=== PATIENT | female | born 1960 | race Caucasian/White ===

== ENCOUNTER 2024-04-14 14:36 | Emergency (ER) | payer OTHER, SELFPAY ==
[2024-04-14 14:37] VITALS: BP 180/83; PULSE 86; RESP 16; TEMP 36.8; O2SAT 100; BMI 34.1
--- NOTE | 2024-04-14 14:55 | RAD_ITS ---
PROCEDURE: HUMERUS 4 VIEWS REASON FOR EXAM: 63-year-old female, fell yesterday, left upper arm and shoulder pain. TECHNIQUE: 4 view(s) of the left humerus COMPARISON: None. FINDINGS: Acute, mildly comminuted and displaced left humeral surgical neck and greater tuberosity fractures. The bone fragments are displaced less than 1 cm. No intra-articular fracture extension. No suspicious bone lesion. Normal alignment at the shoulder and elbow. Soft tissues are unremarkable. The visualized left lung is unremarkable. RAD/Humerus min 2 Views IMPRESSION: Acute fracture of the left surgical neck and greater tuberosity. Reading Location: [id number]
--- NOTE | 2024-04-14 15:16 | EX.ED.UPPERE ---
HPI History of Present Illness Chief Complaint: Upper Extremity Injury Informant: patient and spouse/S.O. Narrative Narrative: Very pleasant 63-year-old female presenting to the emergency room with left shoulder and arm pain. Patient states she fell yesterday tripping on some concrete. She notes bruising along the anterior mid humerus on the left. She is left-hand dominant. She denies any other injuries. She notes pain along the bruising as well as over the anterior left shoulder. She notes limited range of motion. She denies any symptomology at the elbow hand or wrist. She has not seen a local orthopedist [facility] Home Medications ?Medication ?Instructions ?Recorded ?Last Taken ?Type oxycodone-acetaminophen 5 mg-325 1 tab PO Q6H PRN pain 3 days #12 04/14/24 Unknown Rx mg tablet (Percocet) tabs Allergy/AdvReac Type Severity Reaction Status Date / Time No Known Allergies Allergy Verified 04/14/24 14:38 ROS ROS ED Constitutional Constitutional ED: Denies chills or weight loss Eyes Eyes: Denies change in vision or diplopia ENT ENT ED: Denies ear pain, rhinorrhea or sore throat Cardiovascular Cardiovascular: Denies chest pain, orthopnea, palpitations or racing heartbeat Respiratory/Chest Respiratory/Chest: Denies cough, dyspnea or orthopnea Gastrointestinal Gastrointestinal: Denies abdominal pain, diarrhea, nausea or vomiting Genitourinary Genitourinary ED: Denies dysuria, hematuria or urinary frequency Musculoskeletal Musculoskeletal: Reports other Details: See history of present illness ; Denies arthralgias or myalgias Integumentary Denies abscess or rash Neurologic Neurologic: Denies headache(s) or weakness Psychiatric Psychiatric: Denies anxiety, depression, suicidal ideation or suicidal thoughts Endocrine Endocrinology: Denies polydipsia, polyphagia or polyuria Allergic/Immunologic Allergic/Immunologic ED: Denies mouth swelling, tongue swelling or urticaria EXAM Physical Exam Const Vital Signs: 04/14/24 14:37 Temperature 98.2 F Temperature Source Oral Pulse Rate 86 Respiratory Rate 16 Blood Pressure 180/83 H Blood Pressure Mean 115 Pulse Ox 100 Oxygen Delivery Method Room Air Positive well nourished and well developed General Appearance ED: well developed HEENT Reports normocephalic, head/scalp atraumatic and moist mucous membranes Eyes PERRL and EOMs intact bilaterally Neck full ROM, no lymphadenopathy, supple and no JVD Resp normal respiratory effort and clear to auscultation bilaterally Cardio regular rate, regular rhythm and no murmurs GI normal to inspection, nondistended, normoactive bowel sounds and non-tender Palpation: soft Back/Spine no CVA tenderness and normal ROM Extremity Extremity Narrative: Patient has ecchymosis over the anterior left mid humerus. Distal biceps tendon appears intact. She has tenderness over the anterior lateral proximal humerus. No palpable dislocation. Neurovascular she appears intact distal. There is no elbow tenderness. No hand or wrist tenderness. General Extremety ED: Negative for edema General Extremity: Negative for edema Neuro oriented x3 and CN's II-XII intact bilaterally Sensorium / Orientation: alert Motor Exam: strength 5/5 throughout Psych mental status grossly normal Mood & Affect: Negative for depressed or tearful Skin no rashes or lesions noted and no wounds MDM MDM MDM Narrative Medical decision making narrative: Differential diagnosis includes sprain strain fracture tendon injury ligamentous injury neurovascular injury My independent interpretation of the plain films of the left humerus is a comminuted proximal humerus fracture the greater tuberosity off. I spoke with the patient recommended sling pain control icing and follow-up with orthopedics. She notes understanding of plan History & Record Review Discussion w/independent historian: Patient and Significant other Discharge Plan Triage Chief Complaint: Upper Extremity Injury ED Provider: Edil Gambino Dx/Rx/DC Orders Clinical Impression: Fracture of proximal end of humerus, Fall Instructions: ED Fracture, Shoulder Prescriptions: New oxycodone-acetaminophen [Percocet] 5-325 mg tablet 1 tab PO Q6H PRN (Reason: pain) 3 Days Qty: 12 0RF Primary Care Provider: Care Physician,No Primary Referrals: Salas Espinoza MD [Med Staff - Active Staff] - As soon as possible (For orthopedics) Care Physician,No Primary [Primary Care Provider] - Print Language: Russian Disposition Disposition: Home, Self Care
[2024-04-14 15:22] VITALS: BP 143/74; PULSE 82; RESP 15; TEMP 36.6; O2SAT 100
== END 2024-04-14 15:28 | disposition home or self-care (01) ==
PROVIDERS: Emergency Provider Emergency Medicine; Visit Provider Emergency Medicine
DX: S42.252A Displaced fracture of greater tuberosity of left humerus, initial encounter for closed fracture (principal); W01.10XA Fall on same level from slipping, tripping and stumbling with subsequent striking against unspecified object, initial encounter
CPT/HCPCS: 73060; 99283